=== PATIENT | male | born 1980 | race Caucasian/White ===

== ENCOUNTER 2016-12-23 12:29 | Emergency (ER) | payer MEDICAID ==
[2016-12-23 16:01] VITALS: BP 159/115
== END 2016-12-23 16:01 | disposition home or self-care (01) ==
LOC: ED 12:29
DX: S00.81XA Abrasion of other part of head, initial encounter (principal); I10 Essential (primary) hypertension; W18.09XA Striking against other object with subsequent fall, initial encounter; Y93.89 Activity, other specified; Y99.8 Other external cause status; Y92.89 Other specified places as the place of occurrence of the external cause

== ENCOUNTER 2017-04-06 06:17 | Emergency (ER) | payer SELFPAY ==
[~2017-04-06] VITALS: Ht 170.2 cm; Wt 80.5 kg
[2017-04-06 06:25] VITALS: BP 131/108; Ht 170.2 cm; Wt 80.5 kg
== END 2017-04-06 09:03 | disposition home or self-care (01) ==
LOC: ED 06:17
DX: S01.312A Laceration without foreign body of left ear, initial encounter (principal); I10 Essential (primary) hypertension; W22.03XA Walked into furniture, initial encounter; Y93.89 Activity, other specified; Y92.59 Other trade areas as the place of occurrence of the external cause; Y99.8 Other external cause status
CPT/HCPCS: 90715; J2001